=== PATIENT | male | born 1975 | race Two or more races ===

== ENCOUNTER 2025-06-28 21:43 | Emergency (ER) | payer OTHER ==
[~2025-06-28] VITALS: Ht 182.9 cm; Wt 90.7 kg
[2025-06-28 21:51] VITALS: BP 129/88; O2SAT 95
[2025-06-28] MEDS ORDERED: CEPH500C2 PO (22:33)
== END 2025-06-28 22:44 | disposition home or self-care (01) ==
LOC: ER 21:43
DX: S60.512A Abrasion of left hand, initial encounter (principal); S80.211A Abrasion, right knee, initial encounter; L08.9 Local infection of the skin and subcutaneous tissue, unspecified; W18.39XA Other fall on same level, initial encounter; Y93.89 Activity, other specified; Y92.89 Other specified places as the place of occurrence of the external cause; Y99.9 Unspecified external cause status
CPT/HCPCS: A4606; A4663